=== PATIENT | female | born 2000 | race Caucasian/White ===

== ENCOUNTER 2020-11-07 14:24 | Outpatient (CLI) | payer OTHER, SELFPAY ==
[2020-11-07 15:39] LABS: Total Triiodothyronine (T3) 1.59 NG/ML (0.97-1.69)
[2020-11-07 15:43] LABS: Free T4 Free Thyroxine 1.51 ng/mL (0.78-2.19)
[2020-11-10 06:34] LABS: Thyroglobulin <0.1 ng/mL (2.8-40.9); Thyroglobulin Antibodies <1 IU/mL (<=1)
== END 2020-11-07 14:25 | disposition home or self-care (01) ==
PROVIDERS: Referring Provider Radiology Radiation Oncology; Visit Provider Internal Medicine Endocrinology, Diabetes & Metabolism
DX: C73 Malignant neoplasm of thyroid gland (principal); E89.0 Postprocedural hypothyroidism
CPT/HCPCS: 36415; 84432; 84439; 84443; 84480; 86800

== ENCOUNTER 2021-03-25 10:49 | Outpatient (CLI) | payer OTHER, SELFPAY ==
--- NOTE | ~2021-03-25 | US_ITS ---
EXAMINATION: US thyroid EXAM DATE: 03/25/2021 11:04 INDICATION: E89.0 - Postprocedural hypothyroidism. Thyroidectomy. Iatrogenic hypothyroidism. TECHNIQUE: Multiple grayscale and Doppler images of the thyroid were obtained (by a technologist who performed the scan) and subsequently reviewed. Individual nodules and recommendations may be reporte d in accordance with TI-RADS system as designated by the 2017 ACR White Paper TI-RADS committee. The re is no prior study for comparison. FINDINGS: The thyroidectomy bed was evaluated by ultrasound. No focal mass, residual thyroid tissue or internal jugular chain lymphadenopathy was identified. IMPRESSION: 1. Unremarkable thyroidectomy bed. Reviewed, dictated and finalized at location B.
== END 2021-03-25 10:50 ==
LOC: MICIMG 10:52
PROVIDERS: PCP Internal Medicine Endocrinology, Diabetes & Metabolism; Visit Provider Internal Medicine Endocrinology, Diabetes & Metabolism
DX: C73 Malignant neoplasm of thyroid gland (principal); E89.0 Postprocedural hypothyroidism
CPT/HCPCS: 76536

== ENCOUNTER 2021-04-02 14:15 | Outpatient (CLI) | payer OTHER, SELFPAY ==
[2021-04-02 14:31] VITALS: BP 87/71; PULSE 108
[2021-04-02 14:38] VITALS: BP 112/70; PULSE 94
[2021-04-02 14:46] VITALS: BP 109/55; PULSE 95
[2021-04-02 14:50] LABS: Basophils Percent Auto 0.3 % (0.2-1.2); Eosinophils Percent Auto 0.4 % (0-4.4); Hematocrit 29.2 % (37.0-47.0); Hemoglobin 9.7 g/dL (12.0-15.0); Immature Granulocyte Absolute 0.02 K/mm3 (0.00-0.031); Immature Granulocyte Percent A 0.3 % (0-0.5); Lymphocytes Absolute Auto 0.99 K/mm3 (0.9-3.2); Lymphocytes Percent Auto 13.9 % (18.3-44.2); Mean Corpuscular HGB Conc 33.2 g/dl (32-36); Mean Corpuscular Hemoglobin 27.3 pg (26-34); Mean Corpuscular Volume 82.3 fl (80-100); Mean Platelet Volume 10.7 fl (7.4-10.4); Monocytes Absolute Auto 0.4 K/mm3 (0.1-0.6); Monocytes Percent Auto 5.6 % (2.6-8.5); Neutrophils Absolute Auto 5.7 K/mm3 (1.3-6.7); Neutrophils Percent Auto 79.5 % (45.5-73.1); Platelet Count Result 220 k/mm3 (150-375); Red Blood Count 3.55 M/mm3 (4.2-5.4); Red Cell Distribution Width 14.6 % (11.5-14.5); White Blood Count 7.1 K/mm3 (4.5-10.0)
[2021-04-02 15:00] VITALS: BP 112/60; PULSE 87
[2021-04-02 15:03] LABS: Alanine Aminotransferase 26 U/L (4-35); Albumin Level 3.7 g/dL (3.5-5.1); Alkaline Phosphatase 141 U/L (38-126); Anion Gap 11 mmol/L (8-16); Aspartate Amino Transferase 29 U/L (14-36); Bilirubin,Total 0.4 mg/dL (0.2-1.3); Blood Urea Nitrogen 8 mg/dL (7-17); Calcium 8.8 mg/dL (8.4-10.2); Carbon Dioxide 19 mmol/L (22-30); Chloride 106 mmol/L (98-107); Estimated Glomerular Filt Rate > 60; Glucose 116 mg/dL (65-110); Potassium 3.6 mmol/L (3.4-5.0); Sodium 136 mmol/L (137-145); Uric Acid 4.5 mg/dL (2.5-7.5)
[2021-04-02 15:15] VITALS: BP 107/69; PULSE 112
[2021-04-02 15:15] LABS: Creatinine Urine 345.1 mg/dL
[2021-04-02 15:31] LABS: Total Protein Urine Random < 5 mg/dL; Ur Ttl Prot Creatinine Ratio < 0.01 mg/mg (0-0.20)
--- NOTE | 2021-04-02 15:39 | PC.NURSE ---
Called Dr. Ferreira with lab results, BPs and NST results. Informed of maternal heart rate and that pt states she has a headache that started after she was crying due to being nervous about possible induction. November D/C home.
== END 2021-04-02 15:42 | disposition home or self-care (01) ==
LOC: ANHOBOP 14:19 → ANHOBPP 14:21
PROVIDERS: PCP Internal Medicine Endocrinology, Diabetes & Metabolism; Visit Provider Obstetrics & Gynecology
DX: R03.0 Elevated blood-pressure reading, without diagnosis of hypertension (principal)
CPT/HCPCS: 36415; 59025; 80053; 82570; 84156; 84550; 85025; 99199

== ENCOUNTER 2021-04-11 16:46 | Inpatient (IN) | payer OTHER, SELFPAY ==
[2021-04-11] VITALS (30 sets, daily range): BP systolic 63–133; BP diastolic 42–81; PULSE 66–124; RESP 18; TEMP 36.6–36.7; BMI 41.3
[2021-04-11] MEDS: LACTATED RINGERS 1,000 ML 125 ML IV CONT (17:48)
[2021-04-11] MEDS: AMPICILLIN 2 GM/NS 100 ML 2 GM/100 ML BAG IVPB (17:49)
[2021-04-11 17:58] LABS: Basophils Percent Auto 0.3 % (0.2-1.2); Eosinophils Percent Auto 0.6 % (0-4.4); Hematocrit 29.8 % (37.0-47.0); Immature Granulocyte Absolute 0.04 K/mm3 (0.00-0.031); Immature Granulocyte Percent A 0.6 % (0-0.5); Lymphocytes Absolute Auto 1.04 K/mm3 (0.9-3.2); Lymphocytes Percent Auto 14.8 % (18.3-44.2); Mean Corpuscular HGB Conc 33.6 g/dl (32-36); Mean Corpuscular Hemoglobin 27.9 pg (26-34); Mean Corpuscular Volume 83.2 fl (80-100); Mean Platelet Volume 10.7 fl (7.4-10.4); Monocytes Absolute Auto 0.4 K/mm3 (0.1-0.6); Monocytes Percent Auto 5.8 % (2.6-8.5); Neutrophils Absolute Auto 5.5 K/mm3 (1.3-6.7); Neutrophils Percent Auto 77.9 % (45.5-73.1); Platelet Count Result 212 k/mm3 (150-375); Red Blood Count 3.58 M/mm3 (4.2-5.4)
[2021-04-11 18:07] LABS: Uric Acid 5.3 mg/dL (2.5-7.5)
[2021-04-11 18:08] LABS: Alanine Aminotransferase 23 U/L (4-35); Albumin Level 3.8 g/dL (3.5-5.1); Alkaline Phosphatase 167 U/L (38-126); Anion Gap 9 mmol/L (8-16); Aspartate Amino Transferase 31 U/L (14-36); Bilirubin,Total 0.4 mg/dL (0.2-1.3); Blood Urea Nitrogen 8 mg/dL (7-17); Calcium 9.1 mg/dL (8.4-10.2); Carbon Dioxide 21 mmol/L (22-30); Chloride 105 mmol/L (98-107); Estimated Glomerular Filt Rate > 60; Glucose 87 mg/dL (65-110); Potassium 3.8 mmol/L (3.4-5.0); Sodium 135 mmol/L (137-145)
--- NOTE | 2021-04-11 18:13 | LDADM ---
This patient, Alyx Ferrell, was admitted to Labor/Delivery/Recovery 106 on 04/11/21 at 16:46. Plans for labor, pain management and were discussed with patient. Patient/family oriented to hospital policies and general routines including ID bracelet, bed and alarms, visiting hours, pain management, procedures, bathroom and other care routines, personal items, smoking policy, room service/diet and guest tray routines, security routines, and visiting hours. Patient/Family are encouraged to report perceived risks to care and to ask questions if they do not understand what they are told or what they should do. See OBIX for further documentation.
--- NOTE | 2021-04-11 18:34 | WPDANESEPP ---
Anes - Eval Pre Procedure Procedure: labor epidural Date/Time: 04/11/21 18:34 Surgeon: anay Pre Op Diagnosis: IOL Patient Data Age: 20 Gender: F Height: 1.68 m Weight: 116 kg Last Vital Signs Temp 36.8 C 04/11/21 18:30 Pulse 91 04/11/21 18:32 Resp 18 04/11/21 18:32 BP 106/72 04/11/21 18:31 Allergies Allergy/AdvReac Type Severity Reaction Status Date / Time No Known Allergies Allergy Mild Verified 04/08/21 12:43 Home Medications Medication Instructions Recorded Confirmed Type vitamins no.119-iron tablet PO 11/07/20 04/01/21 History fumarate 29 mg-folic acid 1 mg tablet levothyroxine 200 mcg tablet 200 mcg PO DAILY 90 Days #90 tablet 04/01/21 04/01/21 Rx ferrous sulfate 140 mg PO BID 04/08/21 04/08/21 History Laboratory Tests 04/11/21 04/11/21 04/11/21 17:40 17:40 17:40 WBC 7.0 K/mm3 K/mm3 (4.5-10.0) RBC 3.58 M/mm3 L M/mm3 (4.2-5.4) Hgb 10.0 g/dL L g/dL (12.0-15.0) Hct 29.8 % L % (37.0-47.0) MCV 83.2 fl fl (80-100) MCH 27.9 pg pg (26-34) MCHC 33.6 g/dl g/dl (32-36) RDW 15.0 % H % (11.5-14.5) Plt Count 212 k/mm3 k/mm3 (150-375) MPV 10.7 fl H fl (7.4-10.4) Immature Gran % (Auto) 0.6 % H % (0-0.5) Neut % (Auto) 77.9 % H % (45.5-73.1) Lymph % (Auto) 14.8 % L % (18.3-44.2) [place] % (Auto) 5.8 % % (2.6-8.5) Eos % (Auto) 0.6 % % (0-4.4) Baso % (Auto) 0.3 % % (0.2-1.2) Lymph # (Auto) 1.04 K/mm3 K/mm3 (0.9-3.2) [place] # (Auto) 0.4 K/mm3 K/mm3 (0.1-0.6) Eos # (Auto) 0.0 K/mm3 K/mm3 (0-0.3) Baso # (Auto) 0.0 K/mm3 K/mm3 (0.0-0.1) Abs Immat Gran (auto) 0.04 K/mm3 H K/mm3 (0.00-0.031) Absolute Neuts (auto) 5.5 K/mm3 K/mm3 (1.3-6.7) Absolute Nucleated RBC 0.0 K/mm3 K/mm3 (0.0-0.012) Nucleated RBC % 0.0 % % (0.0-0.2) Sodium Potassium Chloride Carbon Dioxide Anion Gap BUN Creatinine Estim Creat Clear Calc Estimated GFR Glucose Uric Acid 5.3 mg/dL mg/dL (2.5-7.5) Calcium Total Bilirubin AST ALT Alkaline Phosphatase Total Protein Albumin RPR Pending 04/11/21 17:40 WBC RBC Hgb Hct MCV MCH MCHC RDW Plt Count MPV Immature Gran % (Auto) Neut % (Auto) Lymph % (Auto) [place] % (Auto) Eos % (Auto) Baso % (Auto) Lymph # (Auto) [place] # (Auto) Eos # (Auto) Baso # (Auto) Abs Immat Gran (auto) Absolute Neuts (auto) Absolute Nucleated RBC Nucleated RBC % Sodium 135 mmol/L L mmol/L (137-145) Potassium 3.8 mmol/L mmol/L (3.4-5.0) Chloride 105 mmol/L mmol/L (98-107) Carbon Dioxide 21 mmol/L L mmol/L (22-30) Anion Gap 9 mmol/L mmol/L (8-16) BUN 8 mg/dL mg/dL (7-17) Creatinine 0.70 mg/dL mg/dL (0.7-1.0) Estim Creat Clear Calc Not Reportable Estimated GFR > 60 (59 - ) Glucose 87 mg/dL mg/dL (65-110) Uric Acid Calcium 9.1 mg/dL mg/dL (8.4-10.2) Total Bilirubin 0.4 mg/dL mg/dL (0.2-1.3) AST 31 U/L U/L (14-36) ALT 23 U/L U/L (4-35) Alkaline Phosphatase 167 U/L H U/L (38-126) Total Protein 7.0 g/dL g/dL (6.3-8.2) Albumin 3.8 g/dL g/dL (3.5-5.1) RPR Patient hx anesthesia problems: none Family hx anesthesia problems: none Results Review: All pre-operative results and documents have been reviewed as part of the pre-operative evaluation. [facility] Past Medical History Medical History (Updated 11/07/20 @ 13:47 by Candice Taylor MD)
[2021-04-11] MEDS: OXYTOCIN 30 UNITS/NS 500 ML 30 UNITS/500 ML BAG 6 UNITS IV CONT (18:48)
[2021-04-11 20:31] LABS: Glucose Point of Care 99 mg/dl (65-105)
[2021-04-11] MEDS: AMPICILLIN 1 GM/NS 50 ML 1 GM/50 ML BAG IVPB (21:55)
[2021-04-12] VITALS (216 sets, daily range): BP systolic 70–126; BP diastolic 43–94; PULSE 36–142; RESP 16–18; TEMP 36.3–37.2; O2SAT 96–100
[2021-04-12 01:10] LABS: Glucose Point of Care 69 mg/dl (65-105)
[2021-04-12] MEDS: LACTATED RINGERS 1,000 ML 125 ML IV CONT ×3 (02:17→15:13)
[2021-04-12] MEDS: AMPICILLIN 1 GM/NS 50 ML 1 GM/50 ML BAG IVPB ×5 (02:17→23:02)
[2021-04-12] MEDS: ACETAMINOPHEN 500 MG TABLET 1000 MG PO ×2 (03:55→19:18)
[2021-04-12 04:04] LABS: Glucose Point of Care 86 mg/dl (65-105)
--- NOTE | 2021-04-12 07:38 | WPDOBADMIT ---
Obstetrics - Admit Note Admission Note: record reviewed. No pertinent additions to the history and/or any subsequent changes in the physical findings that are not consistent with the expected course of the were found. IOL for GHTN, GDM, AROM 2/80/-2 Minimal amount of clear odorless fluid Additions to the history and/or subsequent changes in the physical findings follow. None.
[2021-04-12 07:56] LABS: Glucose Point of Care 77 mg/dl (65-105)
[2021-04-12 09:24] LABS: Amphetamine Screen Urine Negative (Negative); Barbiturate Screen Urine Negative (Negative); Benzodiazepines Screen Urine Negative (Negative); Cannabinoid Screen Urine Negative (Negative); Cocaine Screen Urine Negative (Negative); Methadone Screen Urine Negative (Negative); Opiate Screen Urine Negative (Negative); Phencyclidine Screen Urine Negative (Negative)
[2021-04-12 10:30] LABS: Glucose Point of Care 85 mg/dl (65-105)
[2021-04-12 11:03] LABS: Rapid Plasma Reagin Non-Reactive (NonReactive)
[2021-04-12] MEDS: ONDANSETRON INJ 4 MG/2 ML VIAL IV PUSH (11:28)
[2021-04-12] MEDS: fentaNYL CITRATE INJ (*CRX) 100 MCG/2 ML VIAL 50 MCG IV PUSH ×2 (11:42→13:37)
[2021-04-12 14:46] LABS: Glucose Point of Care 60 mg/dl (65-105)
[2021-04-12 16:03] LABS: Glucose Point of Care 76 mg/dl (65-105)
[2021-04-12 18:15] LABS: Glucose Point of Care 61 mg/dl (65-105)
[2021-04-12] MEDS: OXYTOCIN 30 UNITS/NS 500 ML 30 UNITS/500 ML BAG 6 UNITS IV CONT (19:25)
[2021-04-12 20:56] LABS: Glucose Point of Care 67 mg/dl (65-105)
[2021-04-12 23:24] LABS: Glucose Point of Care 59 mg/dl (65-105)
[2021-04-13] VITALS (254 sets, daily range): BP systolic 51–147; BP diastolic 24–114; PULSE 31–255; RESP 12–18; TEMP 36.3–37.1; O2SAT 92–100
[2021-04-13] MEDS: LORATADINE 10 MG TABLET PO (00:49)
[2021-04-13] MEDS: ACETAMINOPHEN 500 MG TABLET 1000 MG PO (00:59)
[2021-04-13 01:15] LABS: Glucose Point of Care 71 mg/dl (65-105)
[2021-04-13] MEDS: ONDANSETRON INJ 4 MG/2 ML VIAL IV PUSH (01:46)
--- NOTE | 2021-04-13 02:23 | ECG_ITS ---
Measurements Intervals [place] Rate: 69 P: 67 UT: 130 QRS: 26 QRSD: 93 T: 7 QT: 392 QTc: 422 Interpretive Statements SINUS RHYTHM WITH MARKED SINUS ARRHYTHMIA BASELINE ARTIFACT- I, III, AVR, AVL NORMAL ECG Electronically Signed On 04-13-2021 8:38:40 CDT by Josiah Harris D.O.
[2021-04-13] MEDS: LACTATED RINGERS 1,000 ML 125 ML IV CONT (03:53)
[2021-04-13] MEDS: AMPICILLIN 1 GM/NS 50 ML 1 GM/50 ML BAG IVPB ×2 (03:53→09:28)
[2021-04-13 04:13] LABS: Glucose Point of Care 86 mg/dl (65-105)
--- NOTE | 2021-04-13 06:31 | PM.OBPNLAB ---
Pain Control Date/time seen: 04/13/21 06:31 per RN SV /0, anticipate vaginal delivery
[2021-04-13] MEDS: diphenhydrAMINE HCl INJ 50 MG/ML VIAL 25 MG IV PUSH (07:13)
[2021-04-13 08:48] LABS: Glucose Point of Care 77 mg/dl (65-105)
[2021-04-13 10:56] LABS: Glucose Point of Care 66 mg/dl (65-105)
--- NOTE | 2021-04-13 12:43 | PM.IMHP ---
H&P: HPI History of Present Illness Date/Time: 04/13/21 12:43 this patient is a 20-year-old 1 at term whose was complicated by gestational diabetes and gestational hypertension. She has been labor and delivery for 2 days. Induction of labor has been protracted. She has failed to descend in fully dilated. We have agreed to perform delivery. Denies any nausea, vomiting, fever, chills. She denies any chest pain or shortness of breath. Chief Complaint: Term Review of Systems Review of Systems: All systems reviewed & are unremarkable except as noted in HPI and below PMFSH Past Medical History Medical History (Updated 04/13/21 @ 12:50 by Samuel Mcduffie MD) Anemia Cancer Surgical History Surgical History (Updated 11/07/20 @ 13:47 by Candice Taylor MD) H/O thyroidectomy [place] teeth extracted Family History Family History (Updated 04/08/21 @ 12:47 by Cori Miranda RN) Sibling Anemia Father Anxiety Depression Diabetes mellitus Hypertension Grandparent Arthritis Asthma Diabetes mellitus Hypertension Melanoma Heart disease Social History Social History Smoking status: Never smoker Substance use: former Last use: STOPPED AT BEGINNING OF Spiritual care concerns: No Meds Home Medications and Allergies Home Medications Medication Instructions Recorded Confirmed Type vitamins no.119-iron 1 tablet PO DAILY 11/07/20 04/11/21 History fumarate 29 mg-folic acid 1 mg tablet levothyroxine 200 mcg tablet 200 mcg PO DAILY 90 Days #90 tablet 04/01/21 04/11/21 Rx ferrous sulfate 140 mg PO BID 04/08/21 04/11/21 History Allergies Allergy/AdvReac Type Severity Reaction Status Date / Time No Known Allergies Allergy Mild Verified 04/08/21 12:43 Vital Signs Vital Signs - 24 hr 04/12/21 13:00 04/12/21 13:02 04/12/21 13:31 Temperature 97.7 F Pulse Rate 60 56 L Blood Pressure 104/68 116/72 Pulse Oximetry 04/12/21 14:00 04/12/21 14:01 04/12/21 14:31 Temperature 97.7 F Pulse Rate 49 L 57 L Blood Pressure 116/58 L 124/73 Pulse Oximetry 04/12/21 14:56 04/12/21 14:58 04/12/21 15:01 Temperature Pulse Rate 73 85 Blood Pressure 121/47 L 118/81 Pulse Oximetry 99 100 04/12/21 15:05 04/12/21 15:08 04/12/21 15:10 Temperature Pulse Rate 78 81 Blood Pressure 118/73 123/70 Pulse Oximetry 100 100 04/12/21 15:11 04/12/21 15:13 04/12/21 15:15 Temperature Pulse Rate 71 70 Blood Pressure 123/58 L 116/69 Pulse Oximetry 100 04/12/21 15:16 04/12/21 15:18 04/12/21 15:20 Temperature Pulse Rate 73 83 Blood Pressure 108/56 L 117/62 Pulse Oximetry 100 04/12/21 15:21 04/12/21 15:23 04/12/21 15:25 Temperature Pulse Rate 77 70 Blood Pressure 105/65 105/59 L Pulse Oximetry 99 04/12/21 15:26 04/12/21 15:28 04/12/21 15:30 Temperature Pulse Rate 72 61 Blood Pressure 104/52 L 107/60 Pulse Oximetry 100 04/12/21 15:31 04/12/21 15:33 04/12/21 15:35 Temperature Pulse Rate 56 L 56 L Blood Pressure 100/50 L 103/53 L Pulse Oximetry 100 04/12/21 15:36 04/12/21 15:38 04/12/21 15:40 Temperature Pulse Rate 61 78 Blood Pressure 102/60 108/61 Pulse Oximetry 100 04/12/21 15:41 04/12/21 15:43 04/12/21 15:45 Temperature Pulse Rate 77 66 Blood Pressure 112/63 106/61 Pulse Oximetry 99 04/12/21 15:46 04/12/21 15:50 04/12/21 15:55 Temperature Pulse Rate 61 Blood Pressure 105/62 Pulse Oximetry 100 100 04/12/21 16:00 04/12/21 16:01 04/12/21 16:05 Temperature 97.4 F L Pulse Rate 76 Blood Pressure 109/66 Pulse Oximetry 100 100 04/12/21 16:10 04/12/21 16:15 04/12/21 16:16 Temperature Pulse Rate 63 Blood Pressure 110/58 L Pulse Oximetry 99 99 04/12/21 16:20 04/12/21 16:25 04/12/21 16:30 Temperature Pulse Rate Blood Pressure Pulse Oximetry 99 99 98 04/12/21 16:31
[2021-04-13 12:45] LABS: Glucose Point of Care 73 mg/dl (65-105)
--- NOTE | 2021-04-13 13:52 | P.OP_ITS ---
Procedure Note - Detailed Date of Procedure 04/13/21 Pre-op Diagnosis IOL, failure to progress, term , gestational diabetes, gestational hypertension Post-op Diagnosis same Procedure Performed LTCS Surgeon Samuel Mcduffie MD Anesthesia epidural Indications Failure to progress Findings Term infant, average awake, normal Description of Procedure The patient was taken the operating room. She was prepped and draped in dorsal supine position with a leftward tilt. This was done after spinal anesthetic was applied. A low-transverse skin incision was made and carried down till of the fascia with the knife. The fascial incision was made with the knife. The fascial incision was extended laterally with Ricci scissors. The fascia was tented upward superiorly and inferiorly the rectus muscles were dissected off bluntly. The rectus muscles were the midline. The preperitoneal fat and peritoneum were dissected open bluntly at the superior aspect of the rectus muscles. The peritoneal incision was extended superior and inferior with good position of bladder. The uterine incision was made with a scalpel down to the level of the amniotic cavity. The amniotic cavity was ente red bluntly. The infant was delivered. The cord was clamped and cut and the infant was handed off to waiting pediatric staff. Cord bloods were obtained. The placenta was removed manually. The uterus was exteriorized. The uterus was cleared of all clots, debris and membranes. The uterus was closed in 0 Vicryl running lock fashion. An imbricating over a was placed along the incision line as well. The uterus was returned to the abdomen. The gutters were cleared of all clots and debris. The fascia was closed with 0 Vicryl running fashion. The subcutaneous tissue was irrigated pinpoint bleeders were cauterized. The skin was closed with subcuticular absorbable mariya. The skin incision line was covered with glue. The patient tolerated the procedure well. She has taken recovery room in stable condition. Sponge lap and needle counts were correct x2. Estimated Blood Loss 420 Complications No immediate complications Condition stable Disposition PACU
[2021-04-13] MEDS: KETOROLAC 30 MG/ML VIAL (*BKC) IV PUSH ×2 (16:29→22:21)
--- NOTE | 2021-04-13 18:07 | OBPPTRN ---
1657 Patient transferred to post room #278 via stretcher. Support person present. Oriented to unit, room, information board, rooming in, admission packet and security measures. Patient verbalizes understanding.
[2021-04-13] MEDS: DEXTROSE 5%/0.45% SOD CHL 1,000 ML 125 ML IV CONT (20:17)
[2021-04-13] MEDS: ACETAMINOPHEN 325 MG TABLET 650 MG PO (21:13)
[2021-04-13] MEDS: SIMETHICONE 80 MG TAB.CHEW PO (21:16)
[2021-04-14] MEDS: HYDROcodone/acetaminophen (*CRX) 10-325 MG TABLET 1 TAB PO ×6 (00:45→22:06)
[2021-04-14] MEDS: KETOROLAC 30 MG/ML VIAL (*BKC) IV PUSH (03:59)
[2021-04-14 04:00] VITALS: BP 112/71; PULSE 83; RESP 18; TEMP 36.7; O2SAT 99
[2021-04-14 04:55] LABS: Basophils Percent Auto 0.2 % (0.2-1.2); Eosinophils Absolute Auto 0.1 K/mm3 (0-0.3); Eosinophils Percent Auto 0.8 % (0-4.4); Hematocrit 24.2 % (37.0-47.0); Hemoglobin 8.1 g/dL (12.0-15.0); Immature Granulocyte Absolute 0.05 K/mm3 (0.00-0.031); Immature Granulocyte Percent A 0.5 % (0-0.5); Lymphocytes Absolute Auto 0.94 K/mm3 (0.9-3.2); Lymphocytes Percent Auto 8.9 % (18.3-44.2); Mean Corpuscular HGB Conc 33.5 g/dl (32-36); Mean Corpuscular Volume 83.7 fl (80-100); Mean Platelet Volume 11.3 fl (7.4-10.4); Monocytes Absolute Auto 0.6 K/mm3 (0.1-0.6); Monocytes Percent Auto 5.7 % (2.6-8.5); Neutrophils Absolute Auto 8.9 K/mm3 (1.3-6.7); Neutrophils Percent Auto 83.9 % (45.5-73.1); Platelet Count Result 163 k/mm3 (150-375); Red Blood Count 2.89 M/mm3 (4.2-5.4); Red Cell Distribution Width 15.2 % (11.5-14.5); White Blood Count 10.6 K/mm3 (4.5-10.0)
--- NOTE | 2021-04-14 07:53 | WPDANLDPN2 ---
Anes-Prog Note L&D Date/Time: 04/14/21 07:53 Comfortable throughout: labor and section Neuraxial method: epidural Epidural/Spinal procedure site: clean & non-tender Neuro status: Neuro function grossly intact. Cardiovascular status: normal Respiratory status: normal Airway patency: baseline Mental status: baseline Post-Op hydration status: normal Vital Signs: Last Vital Signs Temp 36.7 C 04/14/21 04:00 Pulse 83 04/14/21 04:00 Resp 18 04/14/21 04:00 BP 112/71 04/14/21 04:00 Pulse Ox 99 04/14/21 04:00 Pain score (VAS): 3 I/O: Intake & Output 04/13/21 04/13/21 04/14/21 15:59 23:59 07:59 Intake Total 4889 058 1249 Output Total 755 550 600 Balance 295 50 700 Post-procedural complaints: none Patient feedback: Patient satisfied with anesthetic care.
--- NOTE | 2021-04-14 07:54 | WPDANLDNPN2 ---
Anes-Prog Note L&D-Neuraxial Date/Time: 04/14/21 07:54 Neuraxial medications: epidural PF morphine Opiod-related complaints: none Patient feedback: Patient satisfied with post-operative pain management.
[2021-04-14] MEDS: POLYSACCHARIDE IRON COMPLEX 150 MG CAPSULE PO ×2 (08:01→14:54)
[2021-04-14] MEDS: MULTIVIT/MIN/PREN/FOL AC/IRON TABLET 1 TAB PO (08:01)
[2021-04-14 08:02] VITALS: BP 117/73; PULSE 83; RESP 16; TEMP 36.4; O2SAT 99
[2021-04-14] MEDS: DOCUSATE SODIUM 100 MG CAPSULE PO ×2 (08:02→14:55)
--- NOTE | 2021-04-14 10:43 | PM.OBPNVD ---
OB - PN: Subj Subjective Date/time seen: 04/14/21 10:43 Patient comments: no complaints baby status: doing well OB - PN: Obj Data Labs CBC & Chem 7: 04/14/21 04:08 04/11/21 17:40 Labs: Laboratory Results - last 24 hr 04/13/21 04/13/21 04/14/21 10:52 12:42 04:08 WBC 10.6 H RBC 2.89 L Hgb 8.1 L Hct 24.2 L MCV 83.7 MCH 28.0 MCHC 33.5 RDW 15.2 H Plt Count 163 MPV 11.3 H Immature Gran % (Auto) 0.5 Neut % (Auto) 83.9 H Lymph % (Auto) 8.9 L [place] % (Auto) 5.7 Eos % (Auto) 0.8 Baso % (Auto) 0.2 Lymph # (Auto) 0.94 [place] # (Auto) 0.6 Eos # (Auto) 0.1 Baso # (Auto) 0.0 Abs Immat Gran (auto) 0.05 H Absolute Neuts (auto) 8.9 H Absolute Nucleated RBC 0.0 Nucleated RBC % 0.0 POC Capillary Glucose 66 73 OB - PN A/P Plan day: 1 Plan: routine care Time Spent With Patient Time: Total time spent is greater than 50% in coordination of care (as documented) at patient's floor/unit and/or counseling patient: Review of Systems Review of Systems: All systems reviewed & are unremarkable except as noted in HPI and below Exam Const: General: cooperative Nutritional Appearance: average body habitus and well nourished
[2021-04-14] MEDS: IBUPROFEN 600 MG TABLET PO ×3 (11:35→23:04)
[2021-04-14 11:36] VITALS: BP 121/73; PULSE 78; RESP 12; TEMP 36.3; O2SAT 99
[2021-04-14] MEDS: SIMETHICONE 80 MG TAB.CHEW PO ×5 (13:13→22:06)
[2021-04-14 18:30] VITALS: BP 127/76; PULSE 89; RESP 16; TEMP 36.4; O2SAT 98
[2021-04-14] MEDS: HYDROcodone/acetaminophen (*CRX) 5-325 MG TABLET 1 TAB PO ×2 (18:46→19:35)
[2021-04-14] MEDS: TETANUS,DIPHTHERIA,AC PERTUSSIS ADULT (0.5 ML) BOOSTRIX IM (19:30)
[2021-04-14] MEDS: LANOLIN (LANSINOH) 7.5 GM CREAM 1 APPLIC TOPICAL (19:44)
[2021-04-15 01:25] VITALS: BP 137/84; PULSE 74; RESP 16; TEMP 36.6; O2SAT 96
[2021-04-15] MEDS: SIMETHICONE 80 MG TAB.CHEW PO ×3 (01:30→09:50)
[2021-04-15] MEDS: HYDROcodone/acetaminophen (*CRX) 5-325 MG TABLET 1 TAB PO ×3 (01:30→09:50)
[2021-04-15] MEDS: IBUPROFEN 600 MG TABLET PO (05:59)
--- NOTE | 2021-04-15 07:45 | P.PNOB_ITS ---
OB - PN: Subj Subjective Date/time seen: 04/15/21 07:45 Patient comments: no complaints, pain well controlled, incisional pain, tolerating diet and flatus present OB - PN: Obj Data Labs CBC & Chem 7: 04/14/21 04:08 04/11/21 17:40 OB - PN A/P Plan day: 2 Plan: routine care Comments: POD#2 LTCS - no problems, Time Spent With Patient Time: Total time spent is greater than 50% in coordination of care (as eufemia álvarez) at patient's floor/unit and/or counseling patient: Exam Const: General: comfortable, no acute distress and alert Resp: Effort & Inspection: normal respiratory effort Auscultation: no crackles, no rales and no rhonchi Cardio: Rate: regular rate Heart sounds: no click, no murmurs and no rubs GI: Inspection: non-distended GI Palp: No Tenderness to palpation present (GI) Auscultation: normal bowel sounds Other: Incision - CDI Extrem: General: normal to inspection, no pedal edema and no calf tenderness
--- NOTE | 2021-04-15 07:46 | PM.OBDSVD ---
DS: Admitting Diagnosis Discharge Date 04/15/2021 Admitting Diagnosis term DS: Discharge Diagnosis Discharge Diagnosis (1) delivery delivered: Code(s): O82 - Encounter for delivery without indication Status: Acute OB - DS: Summary OB Procedures : NST and Ultrasound OB Procedures Intrapartum: OB Procedures: : None Peripartum Data Procedures: Procedures Operation Date: 04/13/21 13:00 Actual Procedure Side Surgeon p Section Samuel Mcduffie MD Time Spent with Patient Time attestation: Total time spent providing and/or coordinating discharge services: DS: Data Data Completed and Pending Pending studies at discharge: Pending at discharge 04/13/21 13:25 Surgical [PTH] Routine Discharge Plan Discharge Discharging Clinician: Samuel Mcduffie Patient Disposition: Home, Self-Care Activity: pelvic rest Diet: regular Patient Instructions: Antibiotic Form Stand Alone Forms: General Discharge Information Follow-up/Referrals: Samuel Mcduffie MD [Physician] - Discharge Medications: New hydrocodone-acetaminophen 5-325 mg tablet 1 - 2 tablet PO Q4H PRN (Reason: pain) Qty: 25 RF: 0 Continued PNV 119-iron fum-folic acid 29 mg iron- 1 mg tablet 1 tablet PO DAILY RF: 0 levothyroxine 200 mcg tablet 200 mcg PO DAILY 90 Days Qty: 90 RF: 4 ferrous sulfate 140 mg (45 mg iron) Tablet Extended Release 140 mg PO BID RF: 0 Date of admission: 04/11/21 16:46 Primary Care Provider: Candice Taylor Admitting Provider: Samuel Mcduffie Attending physician on admission: Samuel Mcduffie Condition: Stable
[2021-04-15 07:50] VITALS: BP 128/77; PULSE 80; RESP 16; TEMP 37; O2SAT 98
[2021-04-15 08:00] VITALS: PULSE 80; RESP 16; O2SAT 98
[2021-04-15] MEDS: DOCUSATE SODIUM 100 MG CAPSULE PO (09:50)
[2021-04-15] MEDS: POLYSACCHARIDE IRON COMPLEX 150 MG CAPSULE PO (09:50)
[2021-04-15] MEDS: MULTIVIT/MIN/PREN/FOL AC/IRON TABLET 1 TAB PO (09:52)
--- NOTE | 2021-04-15 10:38 | PC.NURSE ---
Patient viewed the discharge video Mother & Baby Care, The First Two Weeks . Patient was given the opportunity and encouraged to ask questions. Patient verbalized understanding of information shared and has been given the mother/baby guide for home reference.
--- NOTE | 2021-04-15 11:47 | PC.NURSE ---
Consulted with patient, reviewed infant feeding cues, frequencies, duration of feedings, feeding elimination flow sheet, and signs of adequate intake. Demonstrated stimulation techniques to wake infant for feeding. Mother had infant latch to breast independently. Reviewed positioning/alignment, holding breast and asymmetrical latch on. was able to latch correctly. nursed eagerly, with steady draws and frequent swallowing noted. swallowing after most sucks at the breast. Reviewed signs of a correct latch, effective nursing and suck swallow ratio. Infant was able to maintain latch without discomfort to mother. Mother used latch assist independently prior to feeding. Nipple care reviewed. Instructed mother to call out for RN assistance if she is unable to latch infant for feeding or she has discomfort with nursing. Instructed feeding should be initiated three hours from start of last feeding or if feeding cues are noted before. Mother voiced understanding of information shared. Mother verbalizes she is able to independently latch with appropriate positioning/alignment. She states she has minimal nipple discomfort, is feeding as required and waking to feed if needed. has had 6 effective feedings in the past 24 hours with formula supplements after some feedings and in place of one or two feedings, and is currently meeting outcomes for weight, output, jaundice and feeding frequencies. Mother states she feels confident to continue effective at home. Reviewed transition to breast milk, signs of adequate intake, and engorgement/relief. Mom states her breast are starting to feel full and milk noted in latch assist was white in color. Instructed to call ICP if intake/output less than required. Reviewed community resources on the [facility] website and in the Mom/Baby guide. Information on outpatient services provided. Mother has no further questions at this time.
[2021-04-18 11:26] VITALS: BP 136/88; PULSE 58; RESP 18; TEMP 36.8; O2SAT 100
== END 2021-04-15 13:07 | disposition home or self-care (01) | DRG 788 ==
LOC: ANHLDR 04-13 14:03 → ANHOB2 04-13 17:04
PROVIDERS: Advanced Practice Midwife; Admitting Provider Obstetrics & Gynecology; PCP Internal Medicine Endocrinology, Diabetes & Metabolism; Visit Provider Obstetrics & Gynecology
PROC: 10D00Z1 Extraction of Products of Conception, Low, Open Approach (ICD-10-PCS; CPT 59514; principal; 2021-04-13 13:00)
DX: O62.2 Other uterine inertia (principal); O13.4 Gestational [pregnancy-induced] hypertension without significant proteinuria, complicating childbirth; O24.420 Gestational diabetes mellitus in childbirth, diet controlled; O99.824 Streptococcus B carrier state complicating childbirth; O76 Abnormality in fetal heart rate and rhythm complicating labor and delivery; Z3A.37 37 weeks gestation of pregnancy; Z37.0 Single live birth; Z23 Encounter for immunization
CPT/HCPCS: 36415; 80053; 80307; 82948; 84550; 85025; 86592; 86850; 86900; 86901; 88307; 90471; 90653; 90715; 93005; A9270; G0008; J0131; J0290; J0690; J1200; J1885; J2274; J2370; J2405; J2590; J2795; J3010; J7120

== ENCOUNTER 2021-04-21 10:05 | Observation (INO) | payer OTHER, SELFPAY ==
[2021-04-21] VITALS (8 sets, daily range): BP systolic 135–159; BP diastolic 84–95; PULSE 46–71; RESP 12–21; TEMP 36.2–36.8; O2SAT 96–100; BMI 40.2
--- NOTE | ~2021-04-21 | CT_ITS ---
EXAMINATION: CTA chest PE protocol DATE: 04/21/2021 11:37 INDICATION: Shortness of breath. Pain following section. TECHNIQUE: Computed tomography angiography (CTA) of the chest was performed with 100 mL Omnipaque-350 intravenous contrast timed to evaluate the pulmonary arteries. Coronal maximum intensity projection 3D-reconstructions were created by the technologist. Automated exposure control and iterative reconst ruction technique were employed. Exam dose: 631.15 mGy-cm total exam DLP. COMPARISON: 04/21/2021 2 view chest FINDINGS: There is diagnostic contrast enhancement of the pulmonary arteries and no evidence of pulmo nary embolism. No thoracic aortic aneurysm. No hilar or mediastinal enlargement. Normal heart size. No pericardial effusion. There are mild bilateral pleural effusions, right greater than left. There are scattered patchy infiltrates throughout all lobes of both lungs, more prominent on the righ t IMPRESSION: No evidence of pulmonary embolism Patchy bilateral pulmonary infiltrates and small bilateral pleural effusions Reviewed, dictated and finalized at [facility]. Reviewed, dictated and finalized at [facility].
--- NOTE | ~2021-04-21 | XR_ITS ---
XR chest 2V DATE: 04/21/2021 10:25 INDICATION: Chest pain, shortness of breath. Pain with inspiration. TECHNIQUE: PA and lateral views COMPARISON: 11/09/2007 PA expiration chest radiograph and left RIBS FINDINGS: Normal heart size. There is mild pulmonary vascular congestion and redistribution. There are Juany B-lines bilaterally. There is mild prominence of the fissures. Small right pleural effusion is suggested. There is patchy infiltrate involving the right mid and left lower anterior greater extent right lower lung payne. Differential diagnosis includes pulmonary edema, pneumonia, aspiration. IMPRESSION: Pulmonary vascular congestion, pulmonary interstitial and subpleural edema, possible smal l pleural effusion. Findings suggest congestive changes Patchy right mid and bilateral right greater than left lower lung infiltrates; diffusion diagnosis in cludes pulmonary edema, pneumonia, aspiration Reviewed, dictated and finalized at location [facility]. IMPRESSION: Pulmonary vascular congestion, pulmonary interstitial and subpleura l edema, possible small pleural effusion. Findings suggest congestive changes Patchy right mid and bilateral right greater than left lower lung infiltrates; diffusion diagnosis includes pulmonary edema, pneumonia, aspiration
--- NOTE | ~2021-04-21 | XR_ITS ---
EXAMINATION: XR chest 2V EXAM DATE: 04/23/2021 09:14 INDICATION: Pulmonary edema. TECHNIQUE: Frontal and lateral projections of the chest obtained and reviewed. Comparison is made to prior examination from 04/21/2021. FINDINGS: There is improvement in previously seen right basilar predominant indistinct reticulation, probably is pulmonary edema given that pneumonia shouldn't improve this rapidly. There are small ple ural effusions. No confluent consolidation, pneumothorax or pleural effusion suspected. Cardiomediast inal silhouette is normal. There are no osseous abnormalities identified. IMPRESSION: Nearly resolved pulmonary edema. Small pleural effusions. Reviewed, dictated and finalized at location [facility].
--- NOTE | 2021-04-21 10:14 | ECG_ITS ---
Measurements Intervals [place] Rate: 56 P: 58 MO: 115 QRS: 17 QRSD: 99 T: 18 QT: 410 QTc: 396 Interpretive Statements SINUS BRADYCARDIA WITH SINUS ARRHYTHMIA WITH SHORT MO INTERVAL INCOMPLETE RIGHT BUNDLE BRANCH BLOCK BASELINE ARTIFACT- I, II, III, AVR, AVL, AVF, V1, V3-V6 BORDERLINE ECG Electronically Signed On 04-21-2021 18:08:52 CDT by Josiah Harris D.O.
--- NOTE | 2021-04-21 10:21 | PC.NURSE ---
Pt to XRAY at this time.
[2021-04-21 10:31] LABS: Basophils Absolute Auto 0.1 K/mm3 (0.0-0.1); Basophils Percent Auto 0.6 % (0.2-1.2); Eosinophils Absolute Auto 0.2 K/mm3 (0-0.3); Hematocrit 27.7 % (37.0-47.0); Hemoglobin 8.7 g/dL (12.0-15.0); Immature Granulocyte Absolute 0.33 K/mm3 (0.00-0.031); Immature Granulocyte Percent A 4.2 % (0-0.5); Lymphocytes Absolute Auto 1.12 K/mm3 (0.9-3.2); Lymphocytes Percent Auto 14.1 % (18.3-44.2); Mean Corpuscular HGB Conc 31.4 g/dl (32-36); Mean Platelet Volume 9.8 fl (7.4-10.4); Monocytes Absolute Auto 0.4 K/mm3 (0.1-0.6); Monocytes Percent Auto 5.5 % (2.6-8.5); Neutrophils Absolute Auto 5.9 K/mm3 (1.3-6.7); Neutrophils Percent Auto 73.6 % (45.5-73.1); Platelet Count Result 335 k/mm3 (150-375); Red Blood Count 3.22 M/mm3 (4.2-5.4)
[2021-04-21 10:45] LABS: Anion Gap 8 mmol/L (8-16); Blood Urea Nitrogen 14 mg/dL (7-17); Calcium 8.5 mg/dL (8.4-10.2); Carbon Dioxide 23 mmol/L (22-30); Chloride 109 mmol/L (98-107); Estimated CRCL calculation 140 ml/min; Estimated Glomerular Filt Rate > 60; Glucose 86 mg/dL (65-110); Potassium 4.1 mmol/L (3.4-5.0); Sodium 140 mmol/L (137-145)
[2021-04-21 10:46] LABS: INR 0.9; Prothrombin Time 12.5 Seconds (11.1-14.7)
[2021-04-21 10:47] LABS: Partial Thromboplastin Time 30.5 SECONDS (22.3-36.8)
[2021-04-21 10:56] LABS: Troponin I < 0.012 ng/mL (0.000-0.034)
[2021-04-21 11:08] LABS: NT Pro B Type Natriuretic Pept 664 pg/mL (5-100)
[2021-04-21 13:00] LABS: Add Urine Microscopic? YES; Appearance Urine Cloudy (Clear); Bilirubin Urine Negative (Negative); Blood Urine 3+ (Negative); Color Urine Red (Yellow); Glucose Urine UA Negative (Negative); Ketones Urine Negative (Negative); Leukocyte Esterase Ur 2+ LEU/UL (Negative); Nitrate Urine Negative (Negative); Protein Urine 2+ mg/dL (Negative); RBC Urine >75 /hpf (0-2); Squamous Epithelial Cell Urine Moderate /hpf (Few); Urobilinogen Urine Negative mg/dL (<2.0); WBC Urine >75 /hpf
[2021-04-21 13:03] LABS: Specific Grav Ur 1.042 (1.001-1.035)
[2021-04-21] MEDS: MAGNESIUM SULF 2 GM/WATER 50ML 2 GM/50 ML BAG IVPB (13:06)
[2021-04-21] MEDS: FUROSEMIDE INJ 40 MG/4 ML VIAL 20 MG IV PUSH (13:06)
--- NOTE | 2021-04-21 13:12 | ED.CHESTPAIN ---
HPI - Chest Pain General Chief Complaint: Chest Pain <Zoe Chowdhury PA-C - Last Filed: 04/21/21 13:18> Stated Complaint: chest pain, 8 days ago <Zoe Chowdhury PA-C - Last Filed: 04/21/21 13:18> Time Seen by Provider: 04/21/21 10:15 <Zoe Chowdhury PA-C - Last Filed: 04/21/21 13:18> Source: patient <LAUREN Barrett Last Filed: 04/21/21 13:18> Mode of arrival: ambulatory <LAUREN Barrett Last Filed: 04/21/21 13:18> Limitations: no limitations <Zoe Chowdhury PA-C - Last Filed: 04/21/21 13:18> History of Present Illness HPI narrative: Patient 8 days post presents with chief complaint of heaviness to her chest with intermittent sharp chest pains that have been occurring since Thursday. Patient states that her mother stalled so she had to have a performed by Dr. Toro on 04-13-21. Patient states she has been taking ibuprofen and Tylenol for her discomfort. States her last dose of ibuprofen was in 4 AM. Patient denies any fevers chills, cough. Patient states she feels of difficulty getting to deep breaths. Patient denies abdominal pain, nausea, vomiting, diarrhea. Patient reports a history of thyroid cancer at 16 years old resulting in thyroidectomy. Patient states she takes thyroid replacement supplements. She denies history of COPD or asthma or any other chronic medical conditions. <Zoe Chowdhury PA-C - Last Filed: 04/21/21 13:18> Related Data Home Medications: Home Medications Medication Instructions Recorded Confirmed vitamins no.119-iron 1 tablet PO DAILY 11/07/20 04/11/21 fumarate 29 mg-folic acid 1 mg tablet ferrous sulfate 140 mg PO BID 04/08/21 04/11/21 <Zoe Chowdhury PA-C - Last Filed: 04/21/21 13:18> Allergies/Adverse Reactions: Allergies Allergy/AdvReac Type Severity Reaction Status Date / Time No Known Allergies Allergy Mild Verified 04/08/21 12:43 <Zoe Chowdhury PA-C - Last Filed: 04/21/21 13:18> Review of Systems Review of Systems: CONSTITUTIONAL: Denies fever, chills, or sweats. EYES: Denies visual changes, redness, or discharge. ENT: Denies rhinorrhea, congestion, sore throat, or otalgia. CARDIOVASCULAR: Reports chest pain denies palpitations, or edema. RESPIRATORY: Reports dyspnea denies cough GASTROINTESTINAL: Denies abdominal pain, nausea, vomiting, or diarrhea. GENITOURINARY: Denies dysuria or hematuria. SKIN: Denies rash or itching. MUSCULOSKELETAL: Denies back pain, joint pain, or myalgia. NEUROLOGIC: Denies headache, numbness, dizziness, or weakness. PSYCHIATRIC: Denies anxiety or depression. <Zoe Chowdhury PA-C - Last Filed: 04/21/21 13:18> PMFSH Past Medical History Medical History: Medical History (Updated 04/21/21 @ 13:12 by Zoe Chowdhury PA-C) Anemia Cancer <Zoe Chowdhury PA-C - Last Filed: 04/21/21 13:18> Surgical History Surgical History: Surgical History (Updated 11/07/20 @ 13:47 by Candice Taylor MD) H/O thyroidectomy [place] teeth extracted <Zoe Chowdhury PA-C - Last Filed: 04/21/21 13:18> Family History Family History: Family History (Updated 04/08/21 @ 12:47 by Cori Miranda RN) Sibling Anemia Father Anxiety Depression Diabetes mellitus Hypertension Grandparent Arthritis Asthma Diabetes mellitus Hypertension Melanoma Heart disease <Zoe Chowdhury PA-C - Last Filed: 04/21/21 13:18> Social History Social History: Social History Smoking status: Never smoker Substance use: former Last use: STOPPED AT BEGINNING OF Spiritual care concerns: No <Zoe Chowdhury PA-C - Last Filed: 04/21/21 13:18> Exam Narrative: GENERAL: Well-appearing, well-nourished, and in no acute distress. HEAD: Normocephalic, atraumatic. EYES: PERRLA and EOMI. ENT: Nares clear, no rhinorrhea or epistaxis. Mucous membranes moist. Oropharynx without tonsillar hypertrophy exudate or other lesions
--- NOTE | 2021-04-21 15:11 | ADMGEN ---
This patient, Alyx Ferrell, was admitted to [facility] Surg Room 328-01. Patient/family oriented to hospital policies and general routines including ID bracelet, bed and alarms, visiting hours, pain management, procedures, bathroom and other care routines, personal items, smoking policy, room service/diet, and visiting hours. Information on how to activate the Rapid Response Team has been discussed. Patient/Family are encouraged to report perceived risks to care and to ask questions if they do not understand what they are told or what they should do.
--- NOTE | 2021-04-21 17:00 | PM.IMHP ---
H&P: HPI History of Present Illness Date/Time: 04/21/21 17:00 This patient is a 20-year-old multiparous female who is 8 days from a delivery. She was induced at 38 weeks for gestational hypertension but failed to dilate fully. She underwent delivery. Her course was uncomplicated in the hospital at that time. Her blood pressures were reasonable. She was not believed to be preeclamptic. She presented to the emergency department today short of breath. She was evaluated there. She was showing signs and symptoms heart failure, pulmonary edema. she has been treated with Lasix. She was satting around the 90s on room air. She is satting 100% on 3 L of oxygen at this time. She denies any shortness of breath at this time. She feels better at this time. She reports improvement her chest heaviness. She is voiding repetitively. She denies any nausea, vomiting, fever, chills. She denies any cough. Chief Complaint: Dyspnea Review of Systems Review of Systems: All systems reviewed & are unremarkable except as noted in HPI and below Constitutional: Constitutional: Denies chills, Denies excessive sweating, Denies fever(s), Denies headache(s) and Denies night sweats Eyes: Eyes: Denies blurry vision, Denies change in vision, Denies diplopia and Denies irritation ENT: Denies vertigo, Denies headache(s), Denies nasal discharge, Denies sinus pain and Denies sore throat Cardiovascular: Cardiovascular: Reports as per HPI Respiratory: Respiratory: Reports as per HPI Gastrointestinal: Gastrointestinal: Denies abdominal pain, Denies bloating, Denies constipation, Denies excessive flatus and Denies vomiting Genitourinary: Genitourinary: Denies abnormal vaginal bleeding, Denies hematuria, Denies nocturia, Denies urinary hesitancy and Denies urinary urgency Musculoskeletal: Musculoskeletal: Denies myalgias, Denies arthralgias, Denies muscle weakness, Denies neck pain and Denies numbness Integumentary/Breasts: Skin/Breast: Denies pruritus, Denies lesions, Denies erythema, Denies rash, Denies skin ulcer and Denies unusual bruising Neurologic: Denies confusion, Denies dizziness, Denies syncope, Denies frequent falls, Denies headache(s), Denies loss of vision and Denies memory loss Psychiatric: Psychiatric: Reports no additional psychiatric complaints, Denies confusion, Denies depression, Denies mood swings and Denies panic attacks Hematologic/Lymphatic: Hematologic/Lymphatic: Denies easy bleeding, Denies easy bruising and Denies lymphadenopathy PMFSH Past Medical History Medical History (Updated 04/21/21 @ 17:11 by Samuel Mcduffie MD) Anemia Cancer Surgical History Surgical History (Updated 11/07/20 @ 13:47 by Candice Taylor MD) H/O thyroidectomy [place] teeth extracted Family History Family History (Updated 04/08/21 @ 12:47 by Cori Miranda RN) Sibling Anemia Father Anxiety Depression Diabetes mellitus Hypertension Grandparent Arthritis Asthma Diabetes mellitus Hypertension Melanoma Heart disease Social History Social History Smoking status: Never smoker Second hand tobacco smoke exposure: No Alcohol intake: never Substance use: never Last use: STOPPED AT BEGINNING OF Spiritual care concerns: No Meds Home Medications and Allergies Home Medications Medication Instructions Recorded Confirmed Type vitamins no.119-iron 1 tablet PO DAILY 11/07/20 04/21/21 History fumarate 29 mg-folic acid 1 mg tablet levothyroxine 200 mcg tablet 200 mcg PO DAILY 90 Days #90 tablet 04/01/21 04/21/21 Rx ferrous sulfate 140 mg PO BID 04/08/21 04/21/21 History Allergies Allergy/AdvReac Type Severity Reaction Status Date / Time No Known Allergies Allergy Mild Verified 04/08/21 12:43 Vital Signs Vital Signs - 24 hr 04/21/21 10:14 04/21/21 10:19 04/21/21 11:46 Temperature 98.0 F Pulse Rate 53 L 50 L Respiratory Rate 21 H Bl
--- NOTE | 2021-04-21 17:39 | PM.IMHP ---
H&P: HPI History of Present Illness Date/Time: 04/21/21 17:39 this is a 20-year-old female patient who had a Caesarean section on 04/13/2020 at 37 weeks gestation. The patient tells me that she did have -induced hypertension as well as gestational diabetes. The patient had been in labor for over 24 hours with a ruptured bag of Membrane. The patient tells me that she is 1 para 1. the patient stated that she had been induced with Pitocin and that she had failure to progress so she had a on that day. H&H is 8.7 and 27.7. The patient stated she has been on iron for the anemia. TSH is listed as 21.800 but for T3 is 1.2. chest x-ray was read as pulmonary vascular congestion, pulmonary interstitial and subpleural edema, possible small pleural effusion. Findings suggestive of congestive changes. Pain to right knee and bilateral right greater than left lower lung infiltrates. Diffuse diagnosis including pulmonary edema pneumonia aspiration. Chest CTA was read as no evidence of pulmonary embolism, patchy bilateral pulmonary to a small bilateral pleural effusions. the patient was given IV Lasix and magnesium. The patient has been taking ibuprofen Tylenol for her discomfort. The patient denies any history of COPD or asthma. The patient stated that today she had heaviness to her chest and intermittent sharp chest pains that occurred since Thursday. The patient's oxygen level was in the 90s and oxygen was applied at 3 L per nasal cannula and came up to 100%. The patient was given IV Lasix and Dr. cueva was consulted. The patient is being admitted to observation on 04/21/2021. Chief Complaint: Chest pressure Review of Systems Review of Systems: All systems reviewed & are unremarkable except as noted in HPI and below Constitutional: Constitutional: Reports as per HPI and Reports no additional constitutional complaints Eyes: Eyes: Reports as per HPI and Reports no additional eye complaints ENT: Reports system reviewed and no additional complaints, except as documented and Reports Normal hearing present Cardiovascular: Cardiovascular: Reports no additional cardiovascular complaints Respiratory: Respiratory: Reports no additional respiratory complaints and Reports no additional respiratory complaints Gastrointestinal: Gastrointestinal: Reports as per HPI and Reports no additional gastrointestinal complaints Musculoskeletal: Musculoskeletal: Reports no additional musculoskeletal complaints Integumentary/Breasts: Skin/Breast: Reports system reviewed and no additional complaints, except as docu and Reports as per HPI Neurologic: Reports system reviewed and no additional complaints, except as documented, Reports as per HPI and Reports Normal hearing present Psychiatric: Psychiatric: Reports no additional psychiatric complaints and Reports as per HPI Endocrine: Endocrine: Reports no additional endocrine complaints Hematologic/Lymphatic: Hematologic/Lymphatic: Reports no additional hematologic/lymphatic complaints Allergic/Immunologic: Allergic/Immunologic: Reports no additional allergic/immunologic complaints PMFSH Past Medical History Medical History (Updated 04/21/21 @ 18:07 by Jimena Oakley NP) Anemia Cancer Thyroid cancer Surgical History Surgical History H/O thyroidectomy [place] teeth extracted Family History Family History (Updated 04/21/21 @ 17:57 by Jimena Oakley NP) Sibling Anemia Father Anxiety Depression Diabetes mellitus Hypertension SVT (supraventricular tachycardia) Grandparent Arthritis Asthma Diabetes mellitus Hypertension Melanoma Heart disease Social History Social History (Updated 04/21/21 @ 17:58 by Jimena Oakley NP) Social History: the patient lives with her boyfriend. She has the 1 child. Her parents are the durable power ed case manager for healthcare. The patient is a full code. The patien
[2021-04-21] MEDS: ACETAMINOPHEN 325 MG TABLET 650 MG PO (20:12)
[2021-04-22] VITALS (11 sets, daily range): BP systolic 134–149; BP diastolic 72–94; PULSE 43–103; RESP 16–20; TEMP 36.3–36.9; O2SAT 95–100
[2021-04-22] MEDS: LEVOTHYROXINE SODIUM 100 MCG TABLET 200 MCG PO (05:49)
--- NOTE | 2021-04-22 06:00 | ECHO_ITS ---
Patient Info Name: Alyx Ferrell Age: 20 years : 2000 Gender: Female Ht: 66 in Wt: 250 lbs BSA: 2.35 m2 HR: 62 bpm BP: 149 / 82 mmHg Technical Quality: Good Exam Date: 04/22/2021 4:05 PM Exam Location: [facility] Pulmonary Exam Room: 328 Patient Status: Outpatient Admit Date: 04/21/2021 Staff Ordering Physician: Zoe Chowdhury PA-C Packing Machine Tender: Germaine Cole RDCS Attending Provider: Lisa Cabrera PA-C Referring Physician: Trenton BALBUENA; Exam Type: CA echo doppler color flow Study Info Indications - eval - postpardum cm Complete two-dimensional, color flow and Doppler transthoracic echocardiogram is performed. Summary 1. Complete two-dimensional, color flow and Doppler transthoracic echocardiogram is performed. 2. Borderline LV enlargement, normal LV size, normal LV systolic function, ejection fraction 55-60%. Indeterminate diastolic function. Borderline left atrial enlargement. Normal mitral valve structure, trivial MR. No significant aortic stenosis. Mild tricuspid regurgitation. RVSP 31 mmHg. Echogenic pericardium without significant pericardial effusion. Sinus rhythm/sinus bradycardia during the study. Left Ventricle Left ventricular systolic function is normal, estimated at 55-60%. There is no increased left ventricular wall thickness. Right Ventricle Right ventricular chamber dimension is normal. Right ventricular systolic function is normal. Left Atria Left atrial chamber dimension is mildly enlarged. Right Atria Right atrial chamber dimension is normal. Aortic Valve The aortic valve is normal. There is no aortic valve stenosis. Pulmonic Valve The pulmonic valve is normal. Mitral Valve The mitral valve has normal leaflets. There is trace mitral valve regurgitation. Tricuspid Valve The tricuspid valve leaflets are normal. There is mild tricuspid valve regurgitation. Pericardium/Pleural The pericardium appears increased echogenicity of the pericardium. Inferior Vena Cava Normal inferior vena cava with >50% collapse upon inspiration consistent with normal right atrial pressure, 10 mmHg. Aorta The aortic root size at the sinus of Valsalva is not well visualized. Left Ventricular Outflow Tract Name Value Normal LVOT 2D LVOT Diameter 2.0 cm LVOT Doppler LVOT Peak Gradient 6 mmHg LVOT Mean Gradient 4 mmHg LVOT VTI 29 cm LVOT VTI/AV VTI Ratio 0.9 LVOT Stroke Volume 94 ml LVOT CO 17.9 l/min LVOT CI 7.6 l/min/m2 Pulmonic Valve Name Value Normal PV Doppler PV Peak Gradient 2 mmHg Mitral Valve
[2021-04-22 06:34] LABS: Basophils Absolute Auto 0.1 K/mm3 (0.0-0.1); Basophils Percent Auto 0.7 % (0.2-1.2); Eosinophils Absolute Auto 0.2 K/mm3 (0-0.3); Eosinophils Percent Auto 2.4 % (0-4.4); Hematocrit 25.8 % (37.0-47.0); Hemoglobin 8.2 g/dL (12.0-15.0); Immature Granulocyte Absolute 0.14 K/mm3 (0.00-0.031); Lymphocytes Absolute Auto 1.09 K/mm3 (0.9-3.2); Lymphocytes Percent Auto 15.2 % (18.3-44.2); Mean Corpuscular HGB Conc 31.8 g/dl (32-36); Mean Corpuscular Hemoglobin 27.8 pg (26-34); Mean Corpuscular Volume 87.5 fl (80-100); Mean Platelet Volume 9.5 fl (7.4-10.4); Monocytes Absolute Auto 0.4 K/mm3 (0.1-0.6); Monocytes Percent Auto 5.3 % (2.6-8.5); Neutrophils Absolute Auto 5.3 K/mm3 (1.3-6.7); Neutrophils Percent Auto 74.4 % (45.5-73.1); Platelet Count Result 306 k/mm3 (150-375); Red Blood Count 2.95 M/mm3 (4.2-5.4); Red Cell Distribution Width 15.1 % (11.5-14.5); White Blood Count 7.2 K/mm3 (4.5-10.0)
[2021-04-22 06:44] LABS: Alanine Aminotransferase 15 U/L (4-35); Albumin Level 3.3 g/dL (3.5-5.1); Alkaline Phosphatase 116 U/L (38-126); Anion Gap 3 mmol/L (8-16); Aspartate Amino Transferase 19 U/L (14-36); Bilirubin,Total 0.1 mg/dL (0.2-1.3); Blood Urea Nitrogen 12 mg/dL (7-17); Calcium 8.2 mg/dL (8.4-10.2); Carbon Dioxide 25 mmol/L (22-30); Chloride 107 mmol/L (98-107); Estimated CRCL calculation 140 ml/min; Estimated Glomerular Filt Rate > 60; Glucose 95 mg/dL (65-110); Magnesium 2.4 mg/dL (1.6-2.3); Potassium 3.7 mmol/L (3.4-5.0); Sodium 135 mmol/L (137-145)
--- NOTE | 2021-04-22 08:25 | PM.OBPNVD ---
OB - PN: Subj Subjective Date/time seen: 04/22/21 08:25 Patient appears comfortable today. She has no complaints. She denies any nausea, vomiting fever, chills. She denies any chest pain. She denies excessive vaginal bleeding or foul-smelling vaginal discharge. OB - PN: Obj Data Labs CBC & Chem 7: 04/22/21 06:19 04/22/21 06:19 Labs: Laboratory Results - last 24 hr 04/21/21 04/21/21 04/21/21 10:20 10:20 10:20 WBC 8.0 RBC 3.22 L Hgb 8.7 L Hct 27.7 L MCV 86.0 MCH 27.0 MCHC 31.4 L RDW 15.0 H Plt Count 335 D MPV 9.8 Immature Gran % (Auto) 4.2 H Neut % (Auto) 73.6 H Lymph % (Auto) 14.1 L [place] % (Auto) 5.5 Eos % (Auto) 2.0 Baso % (Auto) 0.6 Lymph # (Auto) 1.12 [place] # (Auto) 0.4 Eos # (Auto) 0.2 Baso # (Auto) 0.1 Abs Immat Gran (auto) 0.33 H Absolute Neuts (auto) 5.9 Absolute Nucleated RBC 0.0 Nucleated RBC % 0.0 PT 12.5 INR 0.9 APTT 30.5 Sodium 140 Potassium 4.1 Chloride 109 H Carbon Dioxide 23 Anion Gap 8 BUN 14 D Creatinine 0.70 Estim Creat Clear Calc 140 Estimated GFR > 60 Glucose 86 Calcium 8.5 Magnesium Total Bilirubin AST ALT Alkaline Phosphatase Troponin I < 0.012 NT-Pro-B Natriuret Pep 664 H Total Protein Albumin TSH TSH (Reflex) Free T4 Urine Color Urine Appearance Urine pH Ur Specific [place] Urine Protein Urine Glucose (UA) Urine Ketones Ur Blood (Man) Urine Nitrate Urine Bilirubin Urine Urobilinogen Leukocyte Esterase Rfl Urine RBC Urine WBC Ur Squamous Epith Cells 04/21/21 04/21/21 04/21/21 10:20 10:20 12:47 WBC RBC Hgb Hct MCV MCH MCHC RDW Plt Count MPV Immature Gran % (Auto) Neut % (Auto) Lymph % (Auto) [place] % (Auto) Eos % (Auto) Baso % (Auto) Lymph # (Auto) [place] # (Auto) Eos # (Auto) Baso # (Auto) Abs Immat Gran (auto) Absolute Neuts (auto) Absolute Nucleated RBC Nucleated RBC % PT INR APTT Sodium Potassium Chloride Carbon Dioxide Anion Gap BUN Creatinine Estim Creat Clear Calc Estimated GFR Glucose Calcium Magnesium Total Bilirubin AST ALT Alkaline Phosphatase Troponin I NT-Pro-B Natriuret Pep Total Protein Albumin TSH 21.800 H TSH (Reflex) Free T4 1.20 Urine Color Red H Urine Appearance Cloudy H Urine pH 6.0 Ur Specific [place] 1.042 H Urine Protein 2+ H Urine Glucose (UA) Negative Urine Ketones Negative Ur Blood (Man) 3+ H Urine Nitrate Negative Urine Bilirubin Negative Urine Urobilinogen Negative Leukocyte Esterase Rfl 2+ H Urine RBC >75 H Urine WBC >75 H Ur Squamous Epith Cells Moderate H 04/22/21 04/22/21 04/22/21 06:19 06:19 06:19 WBC 7.2 RBC 2.95 L Hgb 8.2 L Hct 25.8 L MCV 87.5 MCH 27.8 MCHC 31.8 L RDW 15.1 H Plt Count 306 MPV 9.5 Immature Gran % (Auto) 2.0 H Neut % (Auto) 74.4 H Lymph % (Auto) 15.2 L [place] % (Auto) 5.3 Eos % (Auto) 2.4 Baso % (Auto) 0.7 Lymph # (Auto) 1.09 [place] # (Auto) 0.4 Eos # (Auto) 0.2 Baso # (Auto) 0.1 Abs Immat Gran (auto) 0.14 H Absolute Neuts (auto) 5.3 Absolute Nucleated RBC 0.0 Nucleated RBC % 0.0 PT INR APTT Sodium 135 L Potassium 3.7 Chloride 107 Carbon Dioxide 25 Anion Gap 3 L BUN 12 Creatinine 0.70 Estim Creat Clear Calc 140 Estimated GFR > 60 Glucose 95 Calcium 8.2 L Magnesium 2.4 H Total Bilirubin 0.1 L AST 19 ALT 15 Alkaline Phosphatase 116 Troponin I NT-Pro-B Natriuret Pep Total Protein 6.0 L Albumin 3.3 L TSH TSH (Reflex) 24.300 H Free T4 Urine Color Urine Appearance Urine pH Ur Specif
[2021-04-22 09:15] LABS: Free T4 Free Thyroxine Reflex 1.32 ng/dL (0.78-2.19)
[2021-04-22] MEDS: FUROSEMIDE INJ 40 MG/4 ML VIAL 20 MG IV PUSH ×2 (09:15→17:38)
[2021-04-22] MEDS: MULTIVIT/MIN/PREN/FOL AC/IRON TABLET 1 TAB PO (09:15)
[2021-04-22 10:19] LABS: Total Triiodothyronine (T3) 1.16 NG/ML (0.97-1.69)
[2021-04-22] MEDS: FERROUS SULFATE DRIED 142 MG TABCR PO ×2 (10:35→17:38)
--- NOTE | 2021-04-22 13:50 | P.PNIM_ITS ---
Progress Note: A&P Assessment and Plan (1) Dyspnea: Code(s): R06.00 - Dyspnea, unspecified Status: Acute Assessment and Plan: Presented with increased SOB * CXR showed pulmonary vascular congestion, pulmonary edema, possible small pleural effusion * CTA with infiltrates and small bilateral pleural effusions * Symptoms felt to be related to volume overload. BNP elevated at 660. * Found to be hypoxic on presentation down to--. She required 3 L supplemental O2 per nasal cannula, but was quickly removed back to room air. Maintaining adequate O2 sats on room air at this time. * Echocardiogram has been ordered and is pending. * There is concern for cardiomyopathy. Will await echo and consider cardiology consultation based on results * Continue with IV Lasix 20 mg BID * Monitor intake and output. Weigh daily. Heart healthy diet. (2) Pleural effusion: Code(s): J90 - Pleural effusion, not elsewhere classified Status: Acute Assessment and Plan: Evident on CXR and CTA * Continue Lasix as above * Awaiting echocardiogram (3) Hypertension in , condition: Code(s): O16.5 - Unspecified maternal hypertension, complicating the puerperium Status: Acute Assessment and Plan: Blood pressure reviewed and has been slightly elevated above target in the 140s systolic. * Anticipate improvement with diuresis * Monitor BP trends and consider addition of antihypertensive if no further improvement * Per WELDER/FABRICATOR service, could consider addition of labetalol or nifedipine while (4) Postsurgical hypothyroidism: Code(s): E89.0 - Postprocedural hypothyroidism Status: Chronic Assessment and Plan: She has a history of thyroid cancer and is s/p total thyroidectomy and radiation therapy * She follows with podiatrist, Dr. Taylor * Seen about 3 weeks ago and had thyroid ultrasound that was unremarkable * Her TSH is elevated today at 24. T4 is within normal limits * Continue levothyroxine 200 mcg daily * I left a message for her podiatrist regarding her elevated TSH for recommendations regarding medication adjustment (5) Anemia: Code(s): D64.9 - Anemia, unspecified Status: Inactive Assessment and Plan: Hemoglobin relatively consistent with baseline. She does report medium flow menses at this time. * Continue to monitor H&H closely * Continue p.o. ferrous sulfate (6) S/P section: Code(s): Z98.891 - History of uterine scar from previous surgery Status: Acute Assessment and Plan: She is day 9 Caesarean section * Appreciate OBGYN consultation * Continue pumping breast milk * Continue vitamins (7) Abnormal urinalysis: Code(s): R82.90 - Unspecified abnormal findings in urine Status: Acute Assessment and Plan: UA abnormal on presentation. She is asymptomatic aside from frequent urination related to diuresis * She has been started on IV Rocephin per OBGYN * Await results of urine culture and tailor antibiotics accordingly (8) Suspected COVID-19 virus infection: Code(s): Z20.822 - Contact with and (suspected) exposure to COVID-19 Status: Acute Assessment and Plan: Given O2 requirements on presentation, she was tested for COVID-19. * CXR and CTA findings reviewed, felt to be more likely due to volume overload. COVID-19 is less likely. She does not have COVID-19 specific sym
--- NOTE | 2021-04-22 13:50 | PM.IMPN ---
Progress Note: A&P Assessment and Plan (1) Dyspnea: Code(s): R06.00 - Dyspnea, unspecified Status: Acute Assessment and Plan: Presented with increased SOB CXR showed pulmonary vascular congestion, pulmonary edema, possible small pleural effusion CTA with infiltrates and small bilateral pleural effusions Symptoms felt to be related to volume overload. BNP elevated at 660. Found to be hypoxic on presentation down to--. She required 3 L supplemental O2 per nasal cannula, but was quickly removed back to room air. Maintaining adequate O2 sats on room air at this time. Echocardiogram has been ordered and is pending. There is concern for cardiomyopathy. Will await echo and consider cardiology consultation based on results Continue with IV Lasix 20 mg BID Monitor intake and output. Weigh daily. Heart healthy diet. (2) Pleural effusion: Code(s): J90 - Pleural effusion, not elsewhere classified Status: Acute Assessment and Plan: Evident on CXR and CTA Continue Lasix as above Awaiting echocardiogram (3) Hypertension in , condition: Code(s): O16.5 - Unspecified maternal hypertension, complicating the puerperium Status: Acute Assessment and Plan: Blood pressure reviewed and has been slightly elevated above target in the 140s systolic. Anticipate improvement with diuresis Monitor BP trends and consider addition of antihypertensive if no further improvement Per STEAM TENDER service, could consider addition of labetalol or nifedipine while (4) Postsurgical hypothyroidism: Code(s): E89.0 - Postprocedural hypothyroidism Status: Chronic Assessment and Plan: She has a history of thyroid cancer and is s/p total thyroidectomy and radiation therapy She follows with crap game box person, Dr. Taylor Seen about 3 weeks ago and had thyroid ultrasound that was unremarkable Her TSH is elevated today at 24. T4 is within normal limits Continue levothyroxine 200 mcg daily I left a message for her crap game box person regarding her elevated TSH for recommendations regarding medication adjustment (5) Anemia: Code(s): D64.9 - Anemia, unspecified Status: Inactive Assessment and Plan: Hemoglobin relatively consistent with baseline. She does report medium flow menses at this time. Continue to monitor H&H closely Continue p.o. ferrous sulfate (6) S/P section: Code(s): Z98.891 - History of uterine scar from previous surgery Status: Acute Assessment and Plan: She is day 9 Caesarean section Appreciate OBGYN consultation Continue pumping breast milk Continue vitamins (7) Abnormal urinalysis: Code(s): R82.90 - Unspecified abnormal findings in urine Status: Acute Assessment and Plan: UA abnormal on presentation. She is asymptomatic aside from frequent urination related to diuresis She has been started on IV Rocephin per OBGYN Await results of urine culture and tailor antibiotics accordingly (8) Suspected COVID-19 virus infection: Code(s): Z20.822 - Contact with and (suspected) exposure to COVID-19 Status: Acute Assessment and Plan: Given O2 requirements on presentation, she was tested for COVID-19. CXR and CTA findings reviewed, felt to be more likely due to volume overload. COVID-19 is less likely. She does not have COVID-19 specific symptoms Continue isolation precautions while awaiting results Not a candidate for dexamethasone or remdesivir as she has no oxygen requirements Subjective Date/time seen: 04/22/21 13:50 Interval history: Date of service: 04/22/2021 Alyx Ferrell is a 20-year-old female who is day 9 following delivery who is seen in follow-up for dyspnea. She is feeling better at this time. She is tolerating room air and denies any shortness of breath
[2021-04-22] MEDS: ACETAMINOPHEN 325 MG TABLET 650 MG PO (20:13)
[2021-04-22 20:20] LABS: SARS-CoV-2 RNA PCR Negative
[2021-04-23] VITALS (7 sets, daily range): BP systolic 142–147; BP diastolic 80–88; PULSE 50–78; RESP 16–18; TEMP 36.2–36.6; O2SAT 96–97
[2021-04-23] MEDS: LEVOTHYROXINE SODIUM 112 MCG TABLET 224 MCG PO (05:53)
[2021-04-23 06:48] LABS: Hematocrit 28.9 % (37.0-47.0); Hemoglobin 9.2 g/dL (12.0-15.0); Mean Corpuscular HGB Conc 31.8 g/dl (32-36); Mean Corpuscular Hemoglobin 27.8 pg (26-34); Mean Corpuscular Volume 87.3 fl (80-100); Mean Platelet Volume 9.3 fl (7.4-10.4); Platelet Count Result 360 k/mm3 (150-375); Red Blood Count 3.31 M/mm3 (4.2-5.4); Red Cell Distribution Width 15.1 % (11.5-14.5); White Blood Count 6.7 K/mm3 (4.5-10.0)
[2021-04-23 06:50] LABS: Anion Gap 7 mmol/L (8-16); Blood Urea Nitrogen 14 mg/dL (7-17); Calcium 8.5 mg/dL (8.4-10.2); Carbon Dioxide 26 mmol/L (22-30); Chloride 105 mmol/L (98-107); Estimated CRCL calculation 140 ml/min; Estimated Glomerular Filt Rate > 60; Glucose 91 mg/dL (65-110); Sodium 138 mmol/L (137-145)
--- NOTE | 2021-04-23 08:04 | PM.OBPNVD ---
OB - PN: Subj Subjective Date/time seen: 04/23/21 08:04 Denies shortness of breath, denies nausea, vomiting, fever, chills. She denies chest pain. She denies any headache, blurry vision, epigastric pain. Interval history: Date of service: 04/22/2021 Alyx Ferrell is a 20-year-old female who is day 9 following delivery who is seen in follow-up for dyspnea. She is feeling better at this time. She is tolerating room air and denies any shortness of breath. Is no longer experiencing dyspnea on exertion. She has been able to walk back and forth to the bathroom and walk around her room without any symptoms. She denies cough. Denies orthopnea or PND. She feels her swelling in her lower extremities has improved significantly, and might be nearly resolved. Denies nausea, vomiting, fever, or chills. Her appetite has been good. She does have abdominal soreness along her incision. She has been pumping without difficulty. Denies dysuria or hematuria. OB - PN: Obj Data Labs CBC & Chem 7: 04/23/21 06:22 04/23/21 06:22 Labs: Laboratory Results - last 24 hr 04/21/21 04/22/21 04/22/21 14:37 06:19 06:19 WBC RBC Hgb Hct MCV MCH MCHC RDW Plt Count MPV Sodium Potassium Chloride Carbon Dioxide Anion Gap BUN Creatinine Estim Creat Clear Calc Estimated GFR Glucose Calcium Free T4 1.32 Total T3 1.16 SARS-CoV-2 RNA (RT-PCR) Negative 04/23/21 04/23/21 06:22 06:22 WBC 6.7 RBC 3.31 L Hgb 9.2 L Hct 28.9 L MCV 87.3 MCH 27.8 MCHC 31.8 L RDW 15.1 H Plt Count 360 MPV 9.3 Sodium 138 Potassium 4.0 Chloride 105 Carbon Dioxide 26 Anion Gap 7 L BUN 14 Creatinine 0.70 Estim Creat Clear Calc 140 Estimated GFR > 60 Glucose 91 Calcium 8.5 Free T4 Total T3 SARS-CoV-2 RNA (RT-PCR) OB - PN A/P Assessment and Plan (1) Pleural effusion: Code(s): J90 - Pleural effusion, not elsewhere classified Status: Acute (2) Dyspnea: Code(s): R06.00 - Dyspnea, unspecified Status: Acute (3) Gestational hypertension: Code(s): O13.9 - Gestational [-induced] hypertension without significant proteinuria, unspecified trimester Status: Acute (4) Gestational diabetes: Code(s): O24.419 - Gestational diabetes mellitus in , unspecified control Status: Acute (5) delivery delivered: Code(s): O82 - Encounter for delivery without indication Status: Acute (6) Pulmonary edema: Code(s): J81.1 - Chronic pulmonary edema Status: Acute Assessment and Plan: this patient is a 20-year-old female who is 9 days from a delivery and a was complicated by gestational hypertension and gestational diabetes. She was never preeclamptic diagnostically. She was in the ED with shortness of breath. She has been treated with Lasix since that time her shortness of breath resolved. She had some findings on her CT and chest x-ray consistent with pulmonary edema or pneumonia. Her COVID test was negative. Will consider discharge today if echocardiogram is normal and she has not required a cardiology consult. Will repeat UA with straight cath and repeat chest x-ray today. Time Spent With Patient Time: Total time spent is greater than 50% in coordination of care (as documented) at patient's floor/unit and/or counseling patient: Exam Const: General: comfortable, no acute distress and alert Resp: Effort & Inspection: normal respiratory effort Auscultation: no crackles, no rales and no rhonchi Cardio: Rate: regular rate Heart sounds: no click, no murmurs and no rubs GI: Inspection: non-distended GI Palp: No Tenderness to palpation present (GI) Auscultation: normal bowel sounds Other: Incision - CDI Extrem: General: normal to inspection, no pedal edema and
[2021-04-23] MEDS: FERROUS SULFATE DRIED 142 MG TABCR PO (08:08)
[2021-04-23] MEDS: FUROSEMIDE INJ 40 MG/4 ML VIAL 20 MG IV PUSH (08:08)
[2021-04-23] MEDS: MULTIVIT/MIN/PREN/FOL AC/IRON TABLET 1 TAB PO (08:08)
[2021-04-23 13:35] LABS: Add Urine Microscopic? YES; Appearance Urine Cloudy (Clear); Bilirubin Urine Negative (Negative); Blood Urine 3+ (Negative); Color Urine Red (Yellow); Glucose Urine UA Negative (Negative); Ketones Urine Negative (Negative); Leukocyte Esterase Ur 2+ LEU/UL (NEGATIVE); Nitrate Urine Negative (Negative); Protein Urine 3+ mg/dL (Negative); RBC Urine >75 /hpf (0-2); Specific Grav Ur 1.011 (1.001-1.035); Urobilinogen Urine Negative mg/dL (<2.0); WBC Urine >75 /hpf (0-3)
--- NOTE | 2021-04-23 15:43 | PM.DS ---
DS: Admitting Diagnosis Discharge Date 04/24/21 Admitting Diagnosis Volume overload DS: Discharge Diagnosis Discharge Diagnosis (1) Dyspnea: Code(s): R06.00 - Dyspnea, unspecified Status: Acute Assessment and Plan: Presented with increased SOB CXR showed pulmonary vascular congestion, pulmonary edema, possible small pleural effusion CTA with infiltrates and small bilateral pleural effusions Symptoms felt to be related to volume overload. BNP mildly elevated at 660. Found to be hypoxic on presentation down to 88% on presentation. She required 3 L supplemental O2 per nasal cannula, but was quickly weaned to room air and maintained adequate O2 sats. Echocardiogram reviewed with EF 55-60% and indeterminate diastolic function. Also demonstrated echogenic pericardium without evidence of pericardial effusion. Discussed results with core worker, Dr. Gaspar. Echogenic pericardium may be related to her small pleural effusion or may be due to settings from echo machine. Pericarditis unlikely. No need to repeat echo given resolution of symptoms. Discussed need for repeat echo should she have recurrence of symptoms. Diuresed with IV Lasix 20 mg BID with symptomatic improvement. Continue PO Lasix 20 mg BID for 2 more days on discharge. (2) Pleural effusion: Code(s): J90 - Pleural effusion, not elsewhere classified Status: Acute Assessment and Plan: Evident on CXR and CTA, related to volume overload as above. Plan as above. (3) Hypertension in , condition: Code(s): O16.5 - Unspecified maternal hypertension, complicating the puerperium Status: Acute Assessment and Plan: Blood pressure reviewed and was slightly elevated at times in the 140s systolic but did improve with diuresis and anticipate improvement back to baseline. She was noted to have gestational hypertension. She should monitor BP at home and follow up with her OB or PCP for management. (4) Acute UTI: Code(s): N39.0 - Urinary tract infection, site not specified Status: Acute Assessment and Plan: UA abnormal on presentation. Urine culture with growth of 10-49k E. Coli. Started on Rocephin per OBGYN and will continue PO Macrobid for 3 days. (5) Postsurgical hypothyroidism: Code(s): E89.0 - Postprocedural hypothyroidism Status: Chronic Assessment and Plan: She has a history of thyroid cancer and is s/p total thyroidectomy and radiation therapy. She follows with heavy equipment sales associate, Dr. Taylor. Seen about 3 weeks ago and had thyroid ultrasound that was unremarkable. Her TSH was elevated at 24. T4 is within normal limits. Spoke with her heavy equipment sales associate regarding elevated TSH who recommended increasing levothyroxine to 224 mcg daily. Follow up for repeat TSH in 2 weeks. (6) Anemia: Code(s): D64.9 - Anemia, unspecified Status: Inactive Assessment and Plan: Hemoglobin consistent with baseline on review of prior labs. She did report medium flow menses. Continue p.o. ferrous sulfate (7) S/P section: Code(s): Z98.891 - History of uterine scar from previous surgery Status: Acute Assessment and Plan: She had Caesarean section on 04/13/21. Seen in consultation by OBGYN during hospital stay. Continue vitamins. Continue OB follow up. (8) COVID-19 ruled out by laboratory testing: Code(s): Z20.822 - Contact with and (suspected) exposure to COVID-19 Status: Acute Assessment and Plan: Given O2 requirements on presentation, she was tested for COVID-19. Imaging findings felt to be consistent with volume overload, not concerning for infection. COVID-19 test negative on 04/21/21. She has not been vaccinated and reports she was waiting until after delivery. Instructed to discuss with PCP and OB regarding COVID vaccine. DS: Summary Hospital Course Hospital Course: Date of admission: 04/21/2021
== END 2021-04-23 16:20 | disposition home or self-care (01) ==
LOC: ANHED 13:12 → ANH3MEDSUR 14:22
PROVIDERS: Nurse Practitioner; Obstetrics & Gynecology; Physician Assistant; Admitting Provider Internal Medicine; Emergency Provider Emergency Medicine; PCP Internal Medicine Endocrinology, Diabetes & Metabolism; Visit Provider Internal Medicine
DX: O99.285 Endocrine, nutritional and metabolic diseases complicating the puerperium (principal); J90 Pleural effusion, not elsewhere classified; E03.9 Hypothyroidism, unspecified; O90.81 Anemia of the puerperium; D50.9 Iron deficiency anemia, unspecified; R07.9 Chest pain, unspecified; R06.00 Dyspnea, unspecified; I51.7 Cardiomegaly; O16.5 Unspecified maternal hypertension, complicating the puerperium; N39.0 Urinary tract infection, site not specified; B96.20 Unspecified Escherichia coli [E. coli] as the cause of diseases classified elsewhere; Z85.850 Personal history of malignant neoplasm of thyroid; Z90.89 Acquired absence of other organs; Z20.822 Contact with and (suspected) exposure to COVID-19
CPT/HCPCS: 36415; 71046; 71275; 80048; 80053; 81001; 83735; 83880; 84439; 84443; 84480; 84484; 85025; 85027; 85610; 85730; 87077; 87086; 87186; 93005; 93306; 96365; 96374; 96375; 96376; 99285; A9270; C9803; G0378; J0696; J1940; J3475; Q9967; U0003; U0005

== ENCOUNTER 2024-05-24 09:54 | Outpatient (CLI) | payer OTHER, SELFPAY ==
--- NOTE | ~2024-05-24 | US_ITS ---
ABDOMINAL ULTRASOUND (Doppler ultrasound interrogation techniques used as needed for this exam.) Ordering provider: Jose EganMD History: . epigastric pain . Comparison: None. FINDINGS: PANCREAS: Normal echotexture and size. PORTAL VEIN: Hepatopedal flow demonstrated. LIVER: Normal size and echotexture. No focal hepatic lesions or perihepatic fluid collections are kolby ntified. BILIARY DUCTS: No intra or extrahepatic biliary dilation. Common bile duct measures 4.2 mm in diamete r which is normal for patient's age. GALLBLADDER: Cholelithiasis. No sludge, gallbladder wall thickening or pericholecystic fluid. Negati ve sonographic Hernandez's sign. Aorta: Normal. Proximal aorta measures 2 cm. Mid aorta measures 1.7 cm. Distal aorta measures 1.8 cm. IVC: Normal. Spleen: Normal and measures 12 cm. RIGHT KIDNEY: Normal size. The right kidney measures 10.3 x 3.7 x 4.7 cm. The left measures 10.3 x 4. 2 x 5.5 cm. No hydronephrosis, solid renal mass, renal calculi or perinephric fluid collections. No renal cysts. FREE FLUID: None visualized within the upper abdomen. IMPRESSION: Cholelithiasis. Otherwise, normal abdominal ultrasound. Reviewed, dictated and finalized at location A. FACTURER REPRESENTATIVE
== END 2024-05-24 09:55 | disposition home or self-care (01) ==
LOC: MICIMG 09:57
PROVIDERS: PCP Internal Medicine; Visit Provider Internal Medicine
DX: K80.20 Calculus of gallbladder without cholecystitis without obstruction (principal)
CPT/HCPCS: 76700